=== PATIENT | male | born 1995 ===

== ENCOUNTER 2017-02-22 12:33 | Emergency (ER) | payer SELFPAY ==
--- NOTE | 2017-02-22 13:27 | C.PDOC ---
History Of Present Illness 21-year-old male, presents to the emergency department with complaints of throat pain, swelling to tonsils and tongue. Patient states he was diagnosed with strep throat last week. and he was treated with antibiotics. Patient was treated with Amoxicillin by Urgent care center, but still symptomatic. This morning he went back to the same [facility] where he was treated with Rocephin, after which he developed swelling to the tongue. Patient given a Decadron shot in an urgent care today at 12:00 and was referred to ED. States he felt warm last night but has not noted any fevers. Denies nausea/vomiting, fevers, chills, shortness of breath, chest pain, diarrhea, neck pain, cough, or any other associated symptoms. No other complaints at this time. Time Seen by Provider: 02/22/17 12:49 Chief Complaint (Nursing): ENT Problem History Per: Patient History/Exam Limitations: no limitations Onset/Duration Of Symptoms: Days Current Symptoms Are (Timing): Still Present Severity: Moderate Past Medical History Reviewed: Historical Data, Nursing Documentation, Vital Signs Vital Signs: Last Vital Signs Temp 97.6 F 02/22/17 15:23 Pulse 92 H 02/22/17 15:23 Resp 18 02/22/17 15:23 BP 124/79 02/22/17 15:23 Pulse Ox 96 02/22/17 16:23 Family History: States: No Known Family Hx - Social History Hx Alcohol Use: No Hx Substance Use: No - Immunization History Hx Tetanus Toxoid Vaccination: No Hx Influenza Vaccination: No Hx Pneumococcal Vaccination: No Review Of Systems Except As Marked, All Systems Reviewed And Found Negative. Constitutional: Negative for: Fever, Chills ENT: Positive for: Throat Pain Respiratory: Negative for: Cough, Shortness of Breath Gastrointestinal: Negative for: Nausea, Vomiting Musculoskeletal: Negative for: Neck Pain Physical Exam - Physical Exam Appears: Non-toxic, No Acute Distress Skin: Warm, Dry, No Rash Head: Atraumatic, Normacephalic Eye(s): bilateral: Normal Inspection, PERRL, EOMI Ear(s): Bilateral: Normal Nose: Normal Oral Mucosa: Moist Tongue: Normal Appearing, No Swelling, No Lesions, No Erythema Lips: Normal Appearing, No Swelling Gingiva: Normal Appearing, No Erythema, No Ulceration, No Swelling Throat: Other (kissing tonsils w/ bilateral exudates R<L. Uvula midline. Airway patent. Patient has normal voice and is speaking in full sentenses.) Neck: Normal ROM, Supple Lymphatic: Adenopathy (anterior cervical) Cardiovascular: Rhythm Regular, No Murmur Respiratory: Normal Breath Sounds, No Accessory Muscle Use, No Rales, No Rhonchi , No Stridor, No Wheezing Gastrointestinal/Abdominal: Soft, No Tenderness Extremity: Normal ROM, No Swelling Neurological/Psych: Oriented x3, Normal Speech, Normal Cognition ED Course And Treatment - Laboratory Results Result Diagrams: 02/22/17 14:15 02/22/17 14:15 O2 Sat by Pulse Oximetry: 96 Medical Decision Making Medical Decision Making: Patient will be treated with Clindamycin, IV Decadron IV, Toradol and IVFs. Labs were reviewed, mildly elevated WBCs, mono negative. On re-evaluation patient feels better and is stable to be d/c home with ENT follow up. Disposition - Disposition Referrals: Farshad Mariano MD [Staff Provider] - Disposition: HOME/ ROUTINE Disposition Time: 16:05 Condition: STABLE Additional Instructions: Follow up with PMD and ENT specialist within 1-2 days. Return to ED if feel worse. Prescriptions: Clindamycin [Cleocin] 300 mg PO Q6 #28 cap Ibuprofen [Motrin Tab] 600 mg PO Q8 #30 tab Instructions: Tonsillitis (ED) Forms: [facility] (Telugu) - Clinical Impression Clinical Impression: Tonsillitis - Scribe Statement The provider has reviewed the documentation as recorded by the Scribe (Guerline Zaman) All medical record entries made by the Scribe were at my direction and personally dictated by me. I have reviewed the chart and agree that the record accurately reflects my personal performance of the history, physical exam, medical decision making, and the department course for this patient. I have also personally directed, reviewed, and agree with the discharge instructions and disposition.
[2017-02-22] MEDS ORDERED: Sodium Chloride 0.9% 1,000 ML IV STA (13:42)
[2017-02-22] MEDS ORDERED: Dexamethasone 4 mg/1 ml IVP STA (13:42)
[2017-02-22] MEDS ORDERED: Clindamycin 600mg/50ml NS 600 MG/50 ML BAG IVPB ONE (14:23)
[2017-02-22] MEDS ORDERED: Sodium Chloride 0.9% 1,000 ML ONE (14:23)
[2017-02-22 14:25] LABS: BASO # 0.1 K/uL (0.0-0.2); BASO % 0.5 % (0.0-2.0); EOS # 0.1 K/uL (0.0-0.7); EOS % 0.6 % (0.0-4.0); HEMATOCRIT 49.8 % (35.0-51.0); LYMPH # 2.7 K/uL (1.0-4.3); LYMPH % 25.1 % (20.0-40.0); MEAN CELL VOLUME 85.7 fL (80.0-94.0); MEAN CORPUSCULAR HEMOGLOBIN 29.4 pg (27.0-31.0); MEAN CORPUSCULAR HGB CONC 34.3 g/dL (33.0-37.0); MEAN PLATELET VOLUME 8.7 fL (7.2-11.7); MONO # 1.1 K/uL (0.0-0.8); MONO % 10.5 % (0.0-10.0); RED CELL DISTRIBUTION WIDTH 13.3 % (11.5-14.5); WHITE BLOOD COUNT 10.9 K/uL (4.8-10.8)
[2017-02-22 14:37] LABS: CHLORIDE 101 mmol/L (98-107); POTASSIUM 4.2 mmol/L (3.6-5.2); SODIUM 138 mmol/L (132-148)
[2017-02-22 14:39] LABS: BILIRUBIN,TOTAL 1.1 mg/dL (0.2-1.3); GFR AFRICAN-AMERICAN > 60
[2017-02-22 14:40] LABS: ALKALINE PHOSPHATASE 90 U/L (38-126); ALT/SGPT 125 U/L (21-72); AST/SGOT 51 U/L (17-59); BLOOD UREA NITROGEN 11 mg/dL (9-20); CARBON DIOXIDE 27 mmol/L (22-30); GLUCOSE,RANDOM 85 mg/dL (75-110); TOTAL PROTEIN 9.1 g/dL (6.3-8.3)
[2017-02-22 14:41] LABS: CALCIUM 9.7 mg/dl (8.6-10.4)
[2017-02-22 15:24] VITALS: BP 124/79; PULSE 92; RESP 18; TEMP 97.6
[2017-02-22 16:10] VITALS: O2SAT 96
== END 2017-02-22 16:28 | disposition home or self-care (01) ==
LOC: C.ER 12:33
DX: J03.90 Acute tonsillitis, unspecified (principal)
CPT/HCPCS: 80053; 85025; 86308; 87070; 87430; 96374; 96375; 99284; J1100; J1885; J7040